=== PATIENT | female | born 1965 ===

== ENCOUNTER → 2025-02-07 09:57 | Outpatient (BNVA) | payer OTHER, SELFPAY | PROVIDERS: PCP Nurse Practitioner Family; Referring Provider Nurse Practitioner Family; Visit Provider Specialist | DX: G43.711 Chronic migraine without aura, intractable, with status migrainosus (principal); G43.909 Migraine, unspecified, not intractable, without status migrainosus | CPT/HCPCS: 99204 ==

== ENCOUNTER → 2025-06-07 14:03 | Outpatient (BNVA) | payer OTHER, SELFPAY | PROVIDERS: PCP Nurse Practitioner Family; Visit Provider Specialist | DX: G43.711 Chronic migraine without aura, intractable, with status migrainosus (principal) | CPT/HCPCS: 64615; J0585; J9999 ==

== ENCOUNTER → 2025-09-13 09:56 | Outpatient (BNVA) | payer OTHER, SELFPAY | PROVIDERS: PCP Nurse Practitioner Family; Visit Provider Specialist | DX: G43.711 Chronic migraine without aura, intractable, with status migrainosus (principal) | CPT/HCPCS: 64615; J0585; J9999 ==